=== PATIENT | male | born 1995 | race African-American/Black ===

== ENCOUNTER 2019-06-15 14:49 | Emergency (ER) | payer SELFPAY ==
[2019-06-15 14:59] VITALS: BP 137/80
--- NOTE | 2019-06-15 15:53 | ER Document Report ---
ED Extremity Problem, Upper - General Chief Complaint: Shoulder Pain Stated Complaint: RIGHT SHOULDER PAIN Time Seen by Provider: 06/15/19 15:34 Primary Care Provider: NEREIDA HENDRIX JR, DO [ACTIVE PROVISIONAL STAFF] - Follow up as needed TRAVEL OUTSIDE OF THE [place] IN LAST 30 DAYS: No - HPI Notes: Good 23-year-old male to the emergency department with complaints of right shou lder pain that began 2 months ago and has been progressively getting worse. He states that he initially injured the shoulder when he was trying to hold a box up to push it onto a wall at work. He states that it was very heavy. He states he noticed the pain then and that it seemed to be mild but as time has gone on he has continued to have worsening pain and constant pain. He denies any deformity, decrease in range of motion but admits to pain with range of motion. He has not seen an orthopedist about it. He has not had any plain films performed. He denies any other complaints. - Related Data Allergies/Adverse Reactions: No Known Allergies Allergy (Unverified 06/15/19 15:30) Home Medications: Zyrtec and Albuterol Past Medical History - General Information source: Patient - Social History Smoking Status: Former Smoker Frequency of alcohol use: None Drug Abuse: None Lives with: Spouse/Significant other Family History: Reviewed & Not Pertinent Patient has suicidal ideation: No Patient has homicidal ideation: No Pulmonary Medical History: Reports: Hx Asthma Review of Systems - Review of Systems Constitutional: denies: Chills, Fever EENT: No symptoms reported Cardiovascular: denies: Chest pain, Palpitations, Heart racing, Orthopnea, Dyspnea, Syncope, Dizziness, Lightheaded Respiratory: denies: Cough, Short of breath Gastrointestinal: denies: Abdominal pain, Diarrhea, Nausea, Vomiting Genitourinary: denies: Dysuria, Flank pain Musculoskeletal: See HPI, Joint pain - Right shoulder pain. denies: Back pain Skin: No symptoms reported. denies: Rash Hematologic/Lymphatic: No symptoms reported Neurological/Psychological: No symptoms reported -: Yes All other systems reviewed and negative Physical Exam - Vital signs Vitals: Temp Pulse Resp BP Pulse Ox 98.1 F 65 18 137/80 H 100 06/15/19 14:58 06/15/19 14:58 06/15/19 14:58 06/15/19 14:58 06/15/19 14:58 Interpretation: Normal - General General appearance: Appears well, Alert In distress: None - HEENT Head: Normocephalic, Atraumatic Eyes: Normal Pupils: PERRL - Respiratory Respiratory status: No respiratory distress Chest status: Nontender Breath sounds: Normal Chest palpation: Normal - Cardiovascular Rhythm: Regular Heart sounds: Normal auscultation Murmur: No - Abdominal Inspection: Normal Distension: No distension Bowel sounds: Normal Tenderness: Nontender Organomegaly: No organomegaly - Back Back: Normal, Nontender. No: CVA tenderness - Extremities Notes: There is mild tenderness to palpation over the right shoulder by the teres minor and into the axilla. Patient still has full range of motion but increased pain with forward flexion and internal rotation of the shoulder. There is no evidence for shoulder separation or clavicle damage. Nontender right elbow, right wrist, right hand. Handgrip is 5 out of 5 bilaterally. Radial pulses intact and equal. Cap refill is less than 2 seconds. - Neurological Neuro grossly intact: Yes Cognition: Normal Orientation: AAOx4 [place] Coma Scale Eye Opening: Spontaneous [place] Coma Scale Verbal: Oriented [place] Coma Scale Motor: Obeys Commands [place] Coma Scale Total: 15 Speech: Normal Motor strength normal: LUE, RUE, LLE, RLE Sensory: Normal - Psychological Associated symptoms: Normal affect, Normal mood - Skin Skin Temperature: Warm Skin Moisture: Dry Skin Color: Normal Course - Re-evaluation Re-evalutation: Impression: Shoulder injury. Will place in sling and send to orthopedist. X- rays reassuring. We will send home with muscle relaxants and pain meds. Patient agrees - Vital Signs Vital signs: Temp Pulse Resp BP Pulse Ox 98.1 F 65 18 137/80 H 100 06/15/19 14:58 06/15/19 14:58 06/15/19 14:58 06/15/19 14:58 06/15/19 14:58 - Diagnostic Test Radiology reviewed: Image reviewed, Reports reviewed Discharge - Discharge Clinical Impression: Right shoulder injury Qualifiers: Encounter type: initial encounter Qualified Code(s): S49.91XA - Unspecified injury of right shoulder and upper arm, initial encounter Right shoulder pain Qualifiers: Chronicity: acute Qualified Code(s): M25.511 - Pain in right shoulder Condition: Stable Disposition: HOME, SELF-CARE Instructions: Shoulder Injury ([facility]) Additional Instructions: WEAR SLING. TAKE MEDICINES PRESCRIBED. FOLLOW UP WITH THE ORTHOPEDIST WITHOUT FAIL. Prescriptions: Etodolac 200 mg PO BID #20 capsule Methocarbamol [Robaxin 500 mg Tablet] 500 mg PO QID #20 tablet Referrals: NEREIDA HENDRIX JR, [ACTIVE PROVISIONAL STAFF] - Follow up as needed
--- NOTE | 2019-06-15 17:17 | RADIOLOGY REPORT (SQ) ---
EXAM DESCRIPTION: SHOULDER RIGHT 2 OR MORE VIEWS COMPLETED DATE/TIME: 06/15/2019 3:48 pm REASON FOR STUDY: shoulder injury . Lifting injury. Diffuse pain. COMPARISON: None. NUMBER OF VIEWS: Three views. TECHNIQUE: Internal rotation, external rotation, and Y view images acquired of the right shoulder. LIMITATIONS: None. FINDINGS: MINERALIZATION: Normal. BONES: No acute fracture. No worrisome bone lesions. JOINTS: No dislocation. VISUALIZED LUNGS AND RIBS: No pneumothorax. No rib fracture. SOFT TISSUES: No radiopaque foreign body. OTHER: No other significant finding. IMPRESSION: No radiographic abnormality of the right shoulder. TECHNICAL DOCUMENTATION: JOB ID: [id number] [employer]- All Rights Reserved Reading location - IP/workstation name: [email or web address]
== END 2019-06-15 17:32 | disposition home or self-care (01) ==
LOC: ER 14:49
DX: S49.91XA Unspecified injury of right shoulder and upper arm, initial encounter (principal); M25.511 Pain in right shoulder; X50.0XXA Overexertion from strenuous movement or load, initial encounter; Y93.89 Activity, other specified; Y99.0 Civilian activity done for income or pay; J45.909 Unspecified asthma, uncomplicated; Z79.899 Other long term (current) drug therapy; Z87.891 Personal history of nicotine dependence
CPT/HCPCS: 99283

== ENCOUNTER 2019-07-05 14:49 | Emergency (ER) | payer OTHER ==
[2019-07-05 14:53] VITALS: BP 125/54
--- NOTE | 2019-07-05 15:17 | ER Document Report ---
HPI - HPI Time Seen by Provider: 07/05/19 14:59 Pain Level: 3 Context: 23 y/o male presents for suture removal. Pt had laceration to right middle finger 14 days ago and was seen at ER in [place] and had 5 sutures placed. Pt denies any problems with this. - REPRODUCTIVE Reproductive: DENIES: : Past Medical History - Social History Smoking Status: Unknown if Ever Smoked Chew tobacco use (# tins/day): No Frequency of alcohol use: None Drug Abuse: None Family History: Reviewed & Not Pertinent Patient has suicidal ideation: No Patient has homicidal ideation: No Pulmonary Medical History: Reports: Hx Asthma Vertical Provider Document - CONSTITUTIONAL Agree With Documented VS: Yes Notes: GENERAL: Well-appearing, well-nourished and in no acute distress. HEAD: Atraumatic, normocephalic. EYES: Extraocular movements intact, sclera anicteric, conjunctiva are normal. NECK: Normal range of motion, supple without lymphadenopathy or JVD. EXTREMITIES: Normal range of motion, no pitting or edema. No clubbing or cyanosis. Right hand: #5 sutures seen on right middle finger, no wound dehiscence, no erythema, no purulent drainage NEUROLOGICAL: Cranial nerves II through XII grossly intact. Normal speech, normal gait. PSYCH: Normal mood, normal affect. SKIN: Warm, Dry, normal turgor, no rashes or lesions noted. - INFECTION CONTROL TRAVEL OUTSIDE OF THE [place] IN LAST 30 DAYS: No Course - Re-evaluation Re-evalutation: 07/05/19 nontoxic, well-appearing 23-year-old male presents for suture removal. #5 sutures were placed 14 days ago at ER in [place]. Area is healing well. No wound dehiscence, no erythema, no purulent drainage. 5 sutures were removed by PCT. Patient tolerated procedure well. Patient given strict return precautions and close follow-up with PCP. Patient voices understanding and agrees with plan of care. - Vital Signs Vital signs: Temp Pulse Resp BP Pulse Ox 98 F 68 18 125/54 L 97 07/05/19 14:50 07/05/19 14:50 07/05/19 14:50 07/05/19 14:50 07/05/19 14:50 Discharge - Discharge Clinical Impression: Visit for suture removal Laceration of right hand Qualifiers: Encounter type: subsequent encounter Foreign body presence: unspecified Qualified Code(s): S61.411D - Laceration without foreign body of right hand, subsequent encounter Condition: Stable Disposition: HOME, SELF-CARE Instructions: Antibiotic Ointment Protection ([facility]), Laceration Care ([facility]), Soap Cleansing ([facility]) Additional Instructions: Please keep area clean. Please watch for any signs of infection which include redness, increased swelling, increased pain, pus drainage, area being hotter than surrounding skin. Please follow-up with your primary care doctor 1 of the clinics listed in 3 to 5 days. Return immediately to ER if you start having any worsening symptoms, including fever, signs of infection, increased pain, or any other symptoms that are concerning to you. Referrals: SUMAYA FARMER MD [ACTIVE STAFF] - Follow up in 3-5 days [facility] [Provider Group] - Follow up in 3-5 days
== END 2019-07-05 15:39 | disposition home or self-care (01) ==
LOC: ER 14:49
DX: S61.212D Laceration without foreign body of right middle finger without damage to nail, subsequent encounter (principal); X58.XXXD Exposure to other specified factors, subsequent encounter; J45.909 Unspecified asthma, uncomplicated
CPT/HCPCS: 99281

== ENCOUNTER 2020-02-17 20:43 | Emergency (ER) | payer SELFPAY ==
[2020-02-17] MEDS ORDERED: LIDOCAINE 4%/TETRACAINE 0.5%/EPI 0.18% 5 ML TOPICAL SOLN TOP ONE (21:47)
--- NOTE | 2020-02-17 21:54 | ER Document Report ---
ED Medical Screen (RME) - General Chief Complaint: Laceration Stated Complaint: FINGER INJURY Time Seen by Provider: 02/17/20 21:46 TRAVEL OUTSIDE OF THE [place] IN LAST 30 DAYS: No - HPI Notes: 02/17/20 21:47 24-year-old male presents the ED with a laceration to the volar aspect of his left thumb after cutting it on glass approximately 1 to 2 hours ago. Tetanus is up-to-date. denies any n/t to upper extremities. Denies any other area of injury. Has not tried any [id number] medications for pain, reports pain is 3 out of 5. I have greeted and performed a rapid initial assessment of this patient. A comprehensive ED assessment and evaluation of the patient, analysis of test results and completion of the medical decision making process will be conducted by additional ED providers. PHYSICAL EXAMINATION: GENERAL: Well-appearing, well-nourished and in no acute distress. SKIN: Warm, Dry, normal turgor, no rashes or lesions noted. 2cm laceration to volar aspect of left thumb. bleeding controlled. - Related Data Allergies/Adverse Reactions: No Known Allergies Allergy (Verified 07/05/19 14:54) Past Medical History - Social History Chew tobacco use (# tins/day): No Frequency of alcohol use: None Drug Abuse: None Pulmonary Medical History: Reports: Hx Asthma Physical Exam - Vital signs Vitals: Temp Pulse Resp BP Pulse Ox 98.3 F 60 16 125/79 97 02/17/20 21:37 02/17/20 21:37 02/17/20 21:37 02/17/20 21:37 02/17/20 21:37 Course - Vital Signs Vital signs: Temp Pulse Resp BP Pulse Ox 98.3 F 60 16 125/79 97 02/17/20 21:37 02/17/20 21:37 02/17/20 21:37 02/17/20 21:37 02/17/20 21:37
--- NOTE | 2020-02-17 22:43 | RADIOLOGY REPORT (SQ) ---
EXAM DESCRIPTION: XR FINGERS COMPLETED DATE/TME: 02/17/2020 21:46 CLINICAL HISTORY: 24 years, Male, left thumb lac, r/o fx and fb COMPARISON: None. NUMBER OF VIEWS: 3 TECHNIQUE: 3 views left hand LIMITATIONS: None. FINDINGS: Postsurgical change of the IP joint of the thumb. No radiographic evidence for acute fracture or dislocation. Bony fusion of the IP joint with mild soft tissue swelling noted. No radiopaque foreign body. Soft tissue laceration near the first metacarpal. IMPRESSION: Soft tissue injury of the thumb. No acute osseous abnormality. copyright 2010 [email or web address]- All Rights Reserved
--- NOTE | 2020-02-18 00:49 | ER Document Report ---
ED General - General Chief Complaint: Laceration Stated Complaint: FINGER INJURY Time Seen by Provider: 02/17/20 21:46 TRAVEL OUTSIDE OF THE [place] IN LAST 30 DAYS: No - HPI Notes: 24-year-old male presents with laceration to his left thumb. Patient states that he was carrying a mirror, it broke and a piece of the glass cut him to his left thumb. Occurred about 1 to 2 hours prior to arrival. He is left-hand dominant. He reports pain to the area. Denies loss of sensation. His tetanus is up-to-date. He has had previous surgery in that thumb, states that it was because his thumb was sideways at . - Related Data Allergies/Adverse Reactions: No Known Allergies Allergy (Verified 07/05/19 14:54) Past Medical History - General Information source: Patient - Social History Smoking Status: Never Smoker Chew tobacco use (# tins/day): No Frequency of alcohol use: None Drug Abuse: None Family History: Reviewed & Not Pertinent Patient has homicidal ideation: No Pulmonary Medical History: Reports: Hx Asthma Review of Systems - Review of Systems Constitutional: No symptoms reported EENT: No symptoms reported Cardiovascular: No symptoms reported Respiratory: No symptoms reported Gastrointestinal: No symptoms reported Genitourinary: No symptoms reported Musculoskeletal: See HPI Skin: See HPI Neurological/Psychological: No symptoms reported Physical Exam - Vital signs Vitals: Temp Pulse Resp BP Pulse Ox 98.3 F 60 16 125/79 97 02/17/20 21:37 02/17/20 21:37 02/17/20 21:37 02/17/20 21:37 02/17/20 21:37 - General General appearance: Appears well In distress: None - HEENT Head: Normocephalic, Atraumatic Extraocular movements intact: Yes Pupils: PERRL - Respiratory Respiratory status: No respiratory distress - Cardiovascular Rhythm: Regular Pulses: Normal: Radial - Abdominal Inspection: No: Obese - Extremities Notes: Approximately 2 cm laceration to left thenar eminence, hemostatic. Sensation intact to thumb. He is able to oppose thumb to little finger. Insulation Hoseman strength intact. - Neurological Neuro grossly intact: Yes - Psychological Associated symptoms: Normal affect - Skin Skin Temperature: Warm Course - Re-evaluation Re-evalutation: 24-year-old male here with laceration to thenar eminence of left thumb, occurred from a glass from mirror. He is neurologically intact, motor is intact. He had an x-ray done through triage which was negative for fracture or foreign body. Wound was repaired at bedside with three 4-0 Prolene sutures. Wound care was discussed with patient. Return precautions given, stable at time of discharge. - Vital Signs Vital signs: Temp Pulse Resp BP Pulse Ox 97.7 F 75 16 149/80 H 97 02/18/20 00:23 02/18/20 00:23 02/17/20 21:37 02/18/20 00:23 02/18/20 00:23 - Diagnostic Test Radiology reviewed: Image reviewed, Reports reviewed Procedures - Laceration/Wound Repair Left Thumb Wound length (cm): 2 Wound's Depth, Shape: Superficial Laceration pre-procedure: Sterile PPE donned, Shur-Clens applied Anesthetic type: 1% Lidocaine Volume Anesthetic (mLs): 3 Wound explored: No foreign body removed Irrigated w/ Saline (mLs): 100 Wound Repaired With: Sutures Suture Size/Type: 4:0, Prolene Number of Sutures: 3 Layer Closure?: No Post-procedure wound care: Sterile dressing applied Post-procedure NV exam normal: Yes Complications: No Discharge - Discharge Clinical Impression: Thumb laceration Qualifiers: Encounter type: initial encounter Damage to nail status: without damage Foreign body presence: without foreign body Laterality: left Qualified Code(s): S61.012A - Laceration without foreign body of left thumb without damage to nail, initial encounter Disposition: HOME, SELF-CARE Instructions: Antibiotic Ointment Protection ([facility]) Additional Instructions: You may apply topical antibiotic, such as Neosporin or bacitracin to the wound. Please keep covered and wash with soap/water daily. Have stitches removed in 7 to 10 days, you may return to the emergency department, or go to primary care or urgent care. Return to the emergency department for any concerning worsening symptoms.
[2020-02-18] MEDS ORDERED: HYDROCODONE/ACETAMINOPHEN 5-325 MG TABLET PO ONE (00:53)
[2020-02-18] MEDS ORDERED: LIDOCAINE 1% INJ-PF (10 MG/ML) 30 ML SDV INJ ONE (00:53)
[2020-02-18 02:23] VITALS: BP 140/90
== END 2020-02-18 02:23 | disposition home or self-care (01) ==
LOC: ER 20:43
DX: S61.012A Laceration without foreign body of left thumb without damage to nail, initial encounter (principal); W25.XXXA Contact with sharp glass, initial encounter; J45.909 Unspecified asthma, uncomplicated
CPT/HCPCS: 99283; 73140; 12001; J3490